=== PATIENT | male | born 1960 | race Caucasian/White ===

== ENCOUNTER 2019-03-04 11:27 | Emergency (ER) | payer SELFPAY ==
[~2019-03-04] VITALS: Ht 182.9 cm; Wt 90.7 kg
[~2019-03-04 11:27] MED LIST: AMPH20TA3 PO; LORA-259 PO
[2019-03-04 11:42] VITALS: BP 186/101
== END 2019-03-04 13:11 | disposition home or self-care (01) ==
LOC: ER 11:33
DX: M54.2 Cervicalgia (principal); M25.511 Pain in right shoulder; N43.3 Hydrocele, unspecified; F41.9 Anxiety disorder, unspecified; F90.9 Attention-deficit hyperactivity disorder, unspecified type; Z60.2 Problems related to living alone; Z79.899 Other long term (current) drug therapy
CPT/HCPCS: 76870-TC